=== PATIENT | female | born 1940 | race Asian ===

== ENCOUNTER 2022-01-02 15:08 | Emergency (ER) | payer OTHER ==
[~2022-01-02] VITALS: Ht 152.4 cm; Wt 54.8 kg
[2022-01-02] MEDS ORDERED: SODIUM CHLORIDE 0.9% 100 ML ONE (15:20)
[2022-01-02] MEDS ORDERED: IOHEXOL 350 MG/ML 100 ML VIAL ONE (15:21)
[2022-01-02 15:22] LABS: BASOPHILS % (AUTO) 0.1 % (0.0-2.0); EOSINOPHILS % (AUTO) 0 % (1.0-6.0); LYMPHOCYTES # (AUTO) 0.3 K/uL (1.0-4.8); MEAN CORPUSCULAR HEMOGLOBIN 31.2 pg (26.0-34.0); MEAN CORPUSCULAR HGB CONC 34.2 G/dL (31.0-37.0); MEAN CORPUSCULAR VOLUME 91 fL (80-100); MONOCYTES # (AUTO) 0.8 K/uL (0.1-1.0); MONOCYTES % (AUTO) 4.8 % (2.0-9.0); NEUTROPHILS # (AUTO) 14.5 K/uL (1.8-7.7); PLATELET COUNT (AUTO) 298 K/uL (150-450); RED BLOOD CELL COUNT(AUTO) 4.49 MIL/uL (4.00-5.20); RED CELL DISTRIBUTION WIDTH 13.5 % (11.5-14.5)
[2022-01-02 15:24] LABS: NEUTROPHILS % (AUTO) 93.1 % (40.0-70.0)
[2022-01-02] MEDS ORDERED: CEPH-558 PO (15:25)
[2022-01-02] MEDS ORDERED: CLON0.1T2 PO (15:25)
[2022-01-02] MEDS ORDERED: GABA-1216 PO (15:25)
[2022-01-02] MEDS ORDERED: PRED-729 PO (15:25)
[2022-01-02] MEDS ORDERED: DICL100G51 TP (15:25)
[2022-01-02 15:31] LABS: ANION GAP 12 mmol/L (8-16); CALCIUM, TOTAL 9.6 mg/dL (8.8-10.5); CARBON DIOXIDE 23 mmol/L (22-29); CHLORIDE 104 mmol/L (98-107); CREATININE 0.79 mg/dL (0.60-1.30); GLUCOSE,RANDOM 143 mg/dL (70-110); POTASSIUM 3.4 mmol/L (3.5-5.1); SODIUM SERUM 139 mmol/L (136-145); UREA NITROGEN, BLOOD 16 mg/dL (7-18)
[2022-01-02 15:36] LABS: PROTHROMBIN TIME 10.7 SEC (9.4-11.6)
[2022-01-02 15:37] LABS: ALANINE AMINOTRANSFERASE 28 U/L (12-78); ALBUMIN 4.2 g/dL (3.4-5.0); ALKALINE PHOSPHATASE 73 U/L (46-116); ASPARTATE AMINOTRANSFERASE 25 U/L (15-37); BILIRUBIN,TOTAL 0.6 mg/dL (0.1-1.0); TOTAL PROTEIN, SERUM 7.7 g/dL (6.4-8.2)
[2022-01-02 15:40] LABS: GLOMERULAR FILTR. RATE CALC > 60 mL/min (>60)
[2022-01-02] MEDS ORDERED: ROSU5TAB PO (16:28)
[2022-01-02] MEDS ORDERED: LISI40TA9 PO (16:28)
[2022-01-02] MEDS ORDERED: ALEN70TA80 PO (16:28)
[2022-01-02] MEDS ORDERED: DILT-94 PO (16:28)
[2022-01-02] MEDS ORDERED: ATEN-72 PO (16:28)
[2022-01-02] MEDS ORDERED: LABETALOL HCL 5 MG/ML 20 ML VIAL IVP ONE (16:30)
[2022-01-02 17:07] LABS: APPEARANCE,URINE CLEAR (CLEAR); BILIRUBIN,URINE NEGATIVE (NEGATIVE); GLUCOSE, URINE (UA) NEGATIVE (NEGATIVE); KETONES,URINE NEGATIVE (NEGATIVE); LEUKOCYTE ESTERASE ,URINE NEGATIVE (NEGATIVE); NITRATE,URINE NEGATIVE (NEGATIVE); OCCULT BLOOD,URINE NEGATIVE (NEGATIVE); PH,URINE 6.5 (5.0-8.0); PROTEIN,URINE NEGATIVE (NEGATIVE); SPECIFIC GRAVITIY, URINE 1.034 (1.003-1.030); UROBILINOGEN,URINE <=1.0 mg/dL (<=1.0)
[2022-01-02 17:08] LABS: COVID AG,FIA SOURCE NASAL SWAB
[2022-01-02 17:23] LABS: AMPHET/METH SCREEN,URINE NEGATIVE (NEGATIVE); BARBITURATE SCREEN, URINE NEGATIVE (NEGATIVE); BENZODIAZEPINES SCREEN,URINE NEGATIVE (NEGATIVE); CANNABINOID SCREEN,URINE NEGATIVE (NEGATIVE); COCAINE SCREEN,URINE NEGATIVE (NEGATIVE); METHADONE SCREEN, URINE NEGATIVE (NEGATIVE); OPIATE SCREEN,URINE NEGATIVE (NEGATIVE)
[2022-01-02 17:29] LABS: PHENCYCLIDINE SCREEN,URINE NEGATIVE (NEGATIVE)
[2022-01-02 18:04] LABS: BACTERIA,URINE None Seen /HPF (None Seen); RBC,URINE None Seen /HPF (0-2); WBC,URINE None Seen /HPF (0-5)
[2022-01-02] MEDS ORDERED: ASPIRIN 325 MG TABLET PO ONE (19:45)
[2022-01-02 21:24] VITALS: BP 169/82
== END 2022-01-02 22:22 | disposition short-term general hospital (02) ==
LOC: EMS 15:10
DX: I63.9 Cerebral infarction, unspecified (principal); R53.1 Weakness; I10 Essential (primary) hypertension; E11.9 Type 2 diabetes mellitus without complications; Z79.899 Other long term (current) drug therapy; Z20.822 Contact with and (suspected) exposure to COVID-19
CPT/HCPCS: 99291; 70496; 96374; 71045; 87426; 80053; 82962; 84484; 85025; 85610; 85730; 86850; 86900; 86901; 36415; 70498; 82948; 93005; 80307; 81001; 70450; J3490; Q9967; J7050